=== PATIENT | female | born 1950 | race Caucasian/White ===

== ENCOUNTER 2016-12-20 14:30 | Emergency (ER) | payer BC ==
[2016-12-20 15:11] VITALS: BP 133/77
--- NOTE | 2016-12-20 15:33 | RAD ---
INDICATION: Right wrist pain 2 days after injury COMPARISON: None. TECHNIQUE: 3 views right wrist. REPORT: The visualized bones are properly aligned and well corticated. The joint spaces are normal.There is no fracture, dislocation or other focal osseous abnormality. IMPRESSION: Normal radiograph of the right wrist. If the patient's symptoms persist, follow-up imaging is recommended.
[2016-12-20] MEDS ORDERED: Ibuprofen TAB* 600 MG PO ONE (15:59)
--- NOTE | 2016-12-20 16:16 | ED ---
Upper Extremity Pain - HPI Summary HPI Summary: Patient presents to the ED with CC of right wrist pain after she hit the lateral side of the wrist on a post. Notes to pain with extension of the wrist but not with flexion. Pulses +2 bilaterally. Cap refill <2 sec. She denies color or temperature changes. Denies other injuries. Full ROM in all fingers of the ipsilateral hand. Denies elbow pain. Endorses numbness/tingling in the fourth and fifth fingers which have been worsening. - History of Current Complaint Chief Complaint: EDExtremityUpper Stated Complaint: RT WRIST INJURY Time Seen by Provider: 12/20/16 15:12 Hx Obtained From: Patient Mechanism Of Injury: Blunt Trauma Onset/Duration: Started Days Ago Timing: Constant Severity Initially: Moderate Severity Currently: Moderate Pain Location: Wrist Character: Dull, Aching Aggravating Factor(s): Movement, Lifting, Flexion, Extension Alleviating Factor(s): Rest, Ice Associated Signs & Symptoms: Positive: Negative Related History: Dominant Hand Right - Risk Factors Non-Orthopedic Risk Factor: Negative DVT Risk Factors: Negative Septic Arthritis Risk Factor: Negative Compartment Syndrome Risk Factors: Pain - Allergies/Home Medications Allergies/Adverse Reactions: Allergies Allergy/AdvReac Type Severity Reaction Status Date / Time No Known Allergies Allergy Verified 12/20/16 15:09 PMH/Surg Hx/FS Hx/Imm Hx Previously Healthy: Yes - Immunization History Hx Pertussis Vaccination: No Immunizations Up to Date: Unable to Obtain/Confirm Infectious Disease History: No Infectious Disease History: Denies: Traveled Outside the [place] in Last 30 Days - Social History Occupation: Employed Full-time Lives: With Family Alcohol Use: Occasionally Hx Substance Use: No Substance Use Type: Reports: None Smoking Status (MU): Never Smoked Tobacco Review of Systems Constitutional: Negative Negative: Fever, Chills, Fatigue Eyes: Negative Cardiovascular: Negative Respiratory: Negative Genitourinary: Negative Positive: no symptoms reported, see HPI Positive: Arthralgia Positive: Paresthesia, Numbness Psychological: Normal All Other Systems Reviewed And Are Negative: Yes Physical Exam Triage Information Reviewed: Yes Vital Signs On Initial Exam: Initial Vitals Temp Pulse Resp BP Pulse Ox 97.6 F 70 17 133/77 99 12/20/16 15:07 12/20/16 15:07 12/20/16 15:07 12/20/16 15:07 12/20/16 15:07 Vital Signs Reviewed: Yes Appearance: Positive: Well-Appearing, Well-Nourished Skin: Positive: Warm, Skin Color Reflects Adequate Perfusion Head/Face: Positive: Normal Head/Face Inspection Eyes: Positive: Normal, JUSTIN, Conjunctiva Clear Neck: Positive: Supple, No Lymphadenopathy Respiratory/Lung Sounds: Positive: Clear to Auscultation, Breath Sounds Present Cardiovascular: Positive: RRR, Pulses are Symmetrical in both Upper and Lower Extremities Musculoskeletal: Positive: Pain @ - extension of the wrist Neurological: Positive: Speech Normal Psychiatric: Positive: Normal Diagnostics - Vital Signs Vital Signs Temp Pulse Resp BP Pulse Ox 12/20/16 15:07 97.6 F 70 17 133/77 99 - Laboratory Lab Statement: Any lab studies that have been ordered have been reviewed, and results considered in the medical decision making process. Course/Dx - Course Course Of Treatment: Patient evaluated for contusion of the distal radius on the dorsal side of the right wrist. Patient is right handed. Xray negative for acute fracture or other findings. Results and treatment options explained. She is given 600mg ibuprofen in the ED and encouraged to follow up with ortho if symptoms persist. - Diagnoses Differential Diagnosis/HQI/PQRI: Positive: Contusion, Strain, Sprain Provider Diagnoses: Wrist contusion Discharge - Discharge Plan Condition: Stable Disposition: HOME Patient Education Materials: Contusion in Adults (ED) Referrals: Luann Woodward MD [Primary Care Provider] - Mp Diaz MD [Medical Doctor] - Additional Instructions: Please follow up with Ortho if symptoms persist or worsen Ibuprofen 600mg three times daily for pain Ice and elevate as needed Keep jenna wrapped for a few days
== END 2016-12-20 16:12 | disposition home or self-care (01) ==
LOC: ED 14:30
DX: S60.211A Contusion of right wrist, initial encounter (principal); W22.02XA Walked into lamppost, initial encounter; Y93.9 Activity, unspecified; Y92.9 Unspecified place or not applicable
CPT/HCPCS: 99281